=== PATIENT | female | born 1985 | race Caucasian/White ===

== ENCOUNTER 2019-04-09 02:30 | Emergency (ER) | payer SELFPAY ==
[~2019-04-09] VITALS: Ht 162.6 cm; Wt 80.0 kg
[2019-04-09] MEDS ORDERED: SODIUM CHLORIDE 0.9% 1,000 ML IV ONE (04:20)
[2019-04-09] MEDS ORDERED: ACETAMINOPHEN 500MG TABLET PO ONE (04:30)
[2019-04-09] MEDS ORDERED: IBUPROFEN 800MG TABLET PO ONE (04:30)
[2019-04-09 05:25] VITALS: BP 127/79
== END 2019-04-09 06:10 | disposition home or self-care (01) ==
LOC: ER 02:30
DX: J11.1 Influenza due to unidentified influenza virus with other respiratory manifestations (principal); R50.9 Fever, unspecified; M79.10 Myalgia, unspecified site; R53.83 Other fatigue
CPT/HCPCS: 81025; 87804; 99283; J7030; Z7610